=== PATIENT | male | born 1970 | race Caucasian/White ===

== ENCOUNTER → 2021-03-12 | Outpatient (CLI) | payer OTHER ==
[~2021-03-12] MED LIST: ASPIRIN81 M2 PO; ATORVASTATIN CA40 MG PO; AZITHROMYCIN 2250 MG PO; COLON CLEAR; COZAAR 50 MG TA50 M1 PO; COZAAR 50 MG TA50 M2 PO; EFFIENT10 MG PO; FISH OIL500 M1 PO; LIPITOR10 MG PO; LOPRESSOR25 PO; MAGNESIUM OXID200 MG PO; MOBIC15 MG PO; NITROGLYCERIN0.4 MG SUBLING; NORCO 5-325 TA1 EACH PO; PREDNISONE 20 M20 MG PO; PRILOSEC2.5 MG PO; PROVENTIL INH; ROBAXIN 750 MG750 M1 PO; TERBINAFINE HC250 MG PO; VITAMIN D2000 UNIT; VITAMIN D400 UNI1 PO; ZOFRAN4 MG PO
--- NOTE | 2021-03-12 17:06 | CARDNUC ---
[place] [address] CARDIAC NUCLEAR IMAGING REPORT Name: REJI ROSARIO ALAN Room: [facility]#: [id number] Admission: 03/12/21 Attend Phys: Idris Cantor, Discharge: Date of : 68 Date of Service: 03/12/21 1706 Report #: [id number] THIS REPORT FOR: cc: Yusuf Chavez Ghaison F. DO Liston, Michael J. MD [facility] ~ APPROVED REPORT Imaging Protocol: Stress Tc-99m/Rest Tc-99m 1 day Study performed: 03/12/2021 14:37:46 Indication: CAD Patient Location: Out-Patient Stress Nurse: Lynnette Lamb RN Ht: 5 ft 10 in Wt: 167 lbs BSA: 1.93 m2 BMI: 23.95 Medical History Medical History: HTN, Hyperlipidemia Medications: metoprolol, benicar, asa-81, atorvastatin, ntg Allergies: No known drug allergies Cardiac Risk Factors: Age, HTN, Hyperlipidemia, FHX of CAD Previous Cardiac Procedures: PCI, Myocardial infarction Exercise History: Physically active Meds Held (24 hrs): metoprolol Resting Data Rest SPECT myocardial perfusion imaging was performed in supine position 30 minutes following the intravenous injection of 9.6 mCi of Tc-99m Sestamibi. Time of rest injection: 13:15 The images were gated to evaluate regional wall motion and calculate left ventricular ejection fraction. Administration Route: IV Administration Site: Left Hand Exercise Stress At peak stress, the patient was injected intravenously with 31.2mCi of Tc-99m Sestamibi. Time of stress injection: 14:45 Administration Route: IV Administration Site: [place] [address] CARDIAC NUCLEAR IMAGING REPORT Name: REJI ROSARIO Room: [facility]#: [id number] Admission: 03/12/21 Attend Phys: Idris Cantor, Discharge: Date of : 68 Date of Service: 03/12/21 1706 Report #: [id number] Heart Rate at time of stress injection: 154 bpm. Patient continued to exercise for 1 minute(s). Gated Stress SPECT was performed 30 minutes after stress injection. The images were gated to evaluate regional wall motion and calculate left ventricular ejection fraction. Prone imaging was performed. Stress Test Details Stress Test: Exercise stress testing was performed using a Jackson protocol. HR Max Heart Rate (APMHR): 169 bpm Resting HR: 76 bpm Target HR (85% APMHR): 143 bpm Max HR Achieved: 154 bpm % of APMHR: 91 Recovery HR: 104 bpm BP Resting BP: 120/79 mmHg Max BP: 153/82 mmHg Recovery BP: 116/65 mmHg ECG Resting ECG: Sinus Rhythm Stress ECG: Sinus Tachycardia ST Change: None Arrhythmia: None Recovery ECG: Sinus Rhythm Recovery ST Change: None Recovery Arrhythmia: None Clinical The patient exhibited good exercise tolerance. He had no significant symptoms with standard Jackson protocol exercise. Stress ECG Conclusion The baseline twelve-lead EKG shows sinus rhythm without significant ST segment or T wave abnormality. EKGs obtained during and post exercise stress show sinus rhythm and sinus tachycardia with no significant ST segment or T wave changes when compared to baseline. There were no stress-induced arrhythmias. Study Quality Study: Good Artifact: [place] [address] CARDIAC NUCLEAR IMAGING REPORT Name: REJI ROSARIO Room: [facility]#: [id number] Admission: 03/12/21 Attend Phys: Idris Cantor, Discharge: Date of : 68 Date of Service: 03/12/21 1706 Report #: [id number] Study Data At rest, the left ventricular ejection fraction was 61%.. Post stress, the left ventricular ejection was 64%.. TID = 0.87. Perfusion Perfusion images obtained at rest and post exercise stress show uniform uptake of the radioisotope throughout the myocardium. There were no defects to suggest infarct or ischemia. Wall Motion Normal left ventricular wall motion. Nuclear Conclusion ECG Findings: negative for ischemia Clinical Findings: negative for ischemia Nuclear Findings: negative for ischemia Exercise Capacity: normal Left Ventricular Function: normal Risk Study: low Perfusion images show no defect to suggest infarct or ischemia. Left ventricular systolic function appears normal on gated studies. This is a low risk study. <Conclusion> The baseline twelve-lead EKG shows sinus rhythm without significant ST segment or T wave abnormality. EKGs obtained during and post exercise stress show sinus rhythm and sinus tachycardia with no significant ST segment or T wave changes when compared to baseline. There were no stress-induced arrhythmias. <ELECTRONICALLY SIGNED> By: Idris Cantor MD, [facility] 03/12/211705 05 05 Idris Cantor MD, FACC /INF
== END ==
LOC: M.NUC 02-27 16:11
PROVIDERS: ATTEND Internal Medicine Cardiovascular Disease
DX: I25.10 Atherosclerotic heart disease of native coronary artery without angina pectoris (principal); I10 Essential (primary) hypertension; E78.5 Hyperlipidemia, unspecified